=== PATIENT | female | born 1960 | race African-American/Black ===

== ENCOUNTER 2024-04-03 17:29 | Emergency (ER) | payer SELFPAY ==
[~2024-04-03] VITALS: Ht 162.6 cm; Wt 133.0 kg
[2024-04-03 18:36] VITALS: TEMP 36.8; O2SAT 99
[2024-04-03 19:25] LABS: BASOPHILS % 0.8 % (0.0-2.0); EOSINOPHILS % 1.6 % (0.0-5.0); HEMATOCRIT. 39.4 % (36.0-48.0); HEMOGLOBIN. 12.7 g/dL (12.0-16.0); LYMPHOCYTES % 27.9 % (20.0-50.0); MEAN CORPUSCULAR HEMOGLOBIN 26.9 pg (28.0-32.0); MEAN CORPUSCULAR HGB CONC 32.4 g/dL (31.0-37.0); MEAN PLATELET VOLUME 8.8 fl (7.4-10.4); MONOCYTES % 4.9 % (2.0-8.0); NEUTROPHILS % 64.8 % (40.0-76.0); PLATELET 286 x1000/uL (130-400); RED BLOOD CELL COUNT 4.74 mill/uL (4.2-5.4); RED CELL DISTRIBUTION WIDTH 15.4 % (11.6-14.6); WHITE BLOOD COUNT 10.4 x1000/uL (4.5-11.0)
[2024-04-03 19:29] LABS: CHLORIDE 105 mEq/L (98-107); SODIUM 140 mEq/L (136-145)
[2024-04-03 19:30] LABS: CALCIUM 9.7 mg/dL (8.7-10.4); CARBON DIOXIDE 30 mEq/L (21-32)
[2024-04-03 19:35] LABS: CREATININE 0.9 mg/dL (0.6-1.0); GLUCOSE 117 mg/dL (70-105)
[2024-04-03 19:36] LABS: UREA NITROGEN BLOOD 11 mg/dL (9-23)
[2024-04-03 19:44] LABS: CLARITY URINE CLEAR (CLEAR); COLOR URINE YELLOW (YELLOW); GLUCOSE URINE NEGATIVE (NEGATIVE); KETONES URINE NEGATIVE (NEGATIVE); LEUKOCYTE ESTERASE URINE 1+ (NEGATIVE); NITRITE URINE NEGATIVE (NEGATIVE); OCCULT BLOOD URINE NEGATIVE (NEGATIVE); PH URINE 5.5 (4.5-8.0); PROTEIN URINE NEGATIVE (NEGATIVE); SPECIFIC GRAVITY URINE 1.016 (1.005-1.030); UROBILINOGEN URINE 0.2 E.U./dL (0.2-1.0)
[2024-04-03 19:59] LABS: BACTERIA URINE 1+; RBC URINE 0-2 /hpf (0-2); SQUAMOUS EPITHELIAL CELL URINE 1+ /lpf (RARE/1+)
[2024-04-03] MEDS ORDERED: KETOROLAC 15MG/ML VIAL IM ONE (21:45)
[2024-04-03] MEDS: CYCLOBENZAPRINE 10MG TABLET PO SCH (21:55)
[2024-04-03] MEDS: KETOROLAC 15MG/ML VIAL IM NR (22:02)
[2024-04-03] MEDS: LIDOCAINE 5% PATCH TOP SCH (22:02)
[2024-04-03] MEDS ORDERED: CYCL5TAB3 MT (22:28)
[2024-04-03] MEDS ORDERED: LIDO700A15 TP (22:28)
[2024-04-03] MEDS ORDERED: NAPR-1176 MT (22:28)
[2024-04-03 23:55] VITALS: BP 119/69; PULSE 66; RESP 18; O2SAT 98
== END 2024-04-03 23:57 | disposition home or self-care (01) ==
LOC: ER 17:29
DX: M54.50 Low back pain, unspecified (principal); Z79.1 Long term (current) use of non-steroidal anti-inflammatories (NSAID); Z79.899 Other long term (current) drug therapy; V43.52XA Car driver injured in collision with other type car in traffic accident, initial encounter; Y93.89 Activity, other specified; Y92.89 Other specified places as the place of occurrence of the external cause; Y99.8 Other external cause status
CPT/HCPCS: 99283; 80048; 81003; 85025; 36415; 96372; J1885